=== PATIENT | female | born 1995 | race Caucasian/White ===

== ENCOUNTER 2023-07-20 23:00 | Inpatient (IN) | payer OTHER ==
[~2023-07-20] VITALS: Ht 144.8 cm; Wt 60.5 kg
[2023-07-20 23:45] VITALS: BP 106/65; PULSE 75; TEMP 98.2
[2023-07-20] MEDS ORDERED: LR 1,000 ML IV PRN (23:45)
[2023-07-21] VITALS (22 sets, daily range): BP systolic 94–117; BP diastolic 54–71; PULSE 62–90; TEMP 97.7–98.6
--- NOTE | 2023-07-21 01:05 | NUR ---
DR LOUIS NOTIFIED PT IS HERE, SVE X 2 UNCHANGED, FHT CATEGORY 1, CTX'S REG 2-5 MIN. PT STATES THEY ARE GETTING STRONGER SINCE SHE GOT HERE, GBS IS NEG, NO HEALTH HX, . 39.2 WKS. NKDA. HAVE PT AMB 30-45 MINS AND RECHECK HER CERVIX.
--- NOTE | 2023-07-21 01:20 | NUR ---
PT UP TO AMB IN THE [place] FOR 30-45 MINS THEN RECHECK CERVIX. IF CERVICAL CHANGE WAS MADE CALL DR LOUIS BACK.
--- NOTE | 2023-07-21 02:00 | NUR ---
PT BACK FROM [facility] IN [place]. SHE WENT TO THE BR TO VOID, BACK TO BED. SVE /-2. MORE BLOODY SHOW NOTED. PT BREATHING AND MOANING THOUGH CTX'S STATES THEY ARE MORE PAINFUL AND WANTS AN EPIDURAL. DR LOUIS NOTIFIED. ORDERS NOTED TO ADMIT TO L&D, MAY HAVE HER EPIDURAL NOW.
--- NOTE | 2023-07-21 02:10 | NUR ---
IV STARTED IN LEFT WRIST WITH 18 G. BLOOD DRAWN AND SENT TO LAB. IV FLUID BOLUS STARTED FOR EPIDURAL PLACEMENT.
[2023-07-21] MEDS ORDERED: LR & Oxytocin 500 ML IV SCH (02:15)
[2023-07-21] MEDS ORDERED: LR 1,000 ML IV SCH (02:15)
[2023-07-21 02:49] LABS: BASO % 0.2 % (0.0-2.0); EOS # 0.1 K/mm3 (0.0-0.7); EOS % 1.5 % (0.0-4.0); GRAN # 6.2 K/mm3 (1.4-6.5); HEMOGLOBIN 12.2 g/dl (12.5-16.0); LYMPH # 1.6 K/mm3 (1.2-3.4); MEAN CELL VOLUME 94 fl (80.0-100.0); MEAN CORPUSCULAR HEMOGLOBIN 33 pg (27-31); MEAN CORPUSCULAR HGB CONC 35 g/dl (33.0-37.0); MEAN PLATELET VOLUME 10.4 fl (7.4-10.4); MONO # 0.5 K/mm3 (0.1-0.6); MONO % 5.9 % (1.7-9.3); PLATELET COUNT 290 K/mm3 (130-400); RED BLOOD COUNT 3.74 M/mm3 (4.10-5.30); REDCELL DISTRIBUTION WIDTH-CV 13.6 % (11.5-14.5)
[2023-07-21 02:51] LABS: HEMATOCRIT 35.1 % (37.0-47.0)
[2023-07-21] MEDS ORDERED: ROPivacaine PF 0.2% 200 ML IV ONE (02:56)
--- NOTE | 2023-07-21 02:56 | NUR ---
JARRED JUNG FIRE HYDRANT MECHANIC HERE. PT TO A SITTING POSITION. 0310. FIRST EPIDURAL WAS IN , JARRED WAS GETTING BLOOD BACK IN THE CATHETER. THE CATH WAS REMOVED AND REPLACED. PT TOLERATED PROCEDURE VERY WELL. THE VOYCE INTERPRTER HAS BEEN USED THROUGH THE PROCESS FROM THE BEGINNING. 0317 TEST DOSE WAS GIVEN. 0323. EPIDURAL TAPED IN PLACE. PT TO A SUPINE POSITIN, EPIDURAL PUMP WAS STARTED BY JARRED.
--- NOTE | 2023-07-21 03:35 | NUR ---
PT'S LEGS ARE NUMB NOW. SHE IS NOT FEELING THE CTX'S. ESTRELLA CATH PLACED, CLEAR YELLOW URINE RETURNED. PT TOLERATED PROCEDURE WELL.
[2023-07-21] MEDS ORDERED: Naloxone 0.4 MG/ML VIAL IV PRN ×2 (04:30→09:15)
[2023-07-21] MEDS ORDERED: Ondansetron 4 MG/2 ML VIAL IV PRN (04:30)
[2023-07-21] MEDS ORDERED: diphenhydrAMINE 25 MG CAP PO PRN (04:30)
[2023-07-21] MEDS ORDERED: ePHEDrine 50 MG/10 ML VIAL IV PRN (04:30)
[2023-07-21] MEDS ORDERED: diphenhydrAMINE 50 MG/ML 1 ML VIAL IV PRN (04:30)
--- NOTE | 2023-07-21 08:00 | NUR ---
PAPER JAMMED IN MONITOR. NO PAPER STRIP PRINTED FROM 0615 UNTIL 0720. STRIP PRESENT ON OB TRACEVUE.
--- NOTE | 2023-07-21 08:47 | NUR ---
0825PT CALLS OUT THAT SHE IS FEELING A LOT OF PRESSURE. THIS RN AT BEDSIDE TO ASSESS. 0830SVE AT THIS TIME PER THIS RN. 0832SROM AT THIS TIME DURING RN SVE. SVE OF /+2. DR LOUIS, NURSERY NURSE, AND CHARGE NURSE ALL NOTIFIED. 0835DR HERIBERTO AT BEDSIDE TO COMFIRM SVE. SVE OF /+2. PT AND ROOM SET UP FOR DELIVERY. 0838FOLEY REMOVED AT THIS TIME. NURSERY NURSE AT BEDSIDE. 0842THIS RN AND DR LOUIS START PUSHING WITH PT AT THIS TIME. GOOD MATERNAL EFFORT NOTED. 0847SHOULDER DYSTOCHIA NOTED AT THIS TIME. PT HEAD OF BED LAID BACK. THIS RN AND APRIL RN PERFORM MAULIK MANUEVER, AND YESENIA RN PERFORMS SUPRAPUBIC PRESSURE. OF VIABLE MALE INFANT PER DR LOUIS. INFANT PLACED ON MATERNAL ABDOMEN. CARE ASSUMED BY NURSERY. SHOULDER DYSTOCIA NOTED TO LAST 15 SECONDS. 0851SVD OF PLACENTA PER DR LOUIS. PERINEUM IS INTACT PER DR LOUIS. PITOCIN BOLUS STARTED AT THIS TIME. FUNDUS FIRM AT U. LOCHIA WNL. 0855BED AND ROOM PUT BACK TOGETHER. PT COMFORTABLE IN BED. PERICARE PERFORMED. ICE PACK PLACED ON PT PERINEUM. FUNDUS FIRM AT U. LOCHIA WNL.
[2023-07-21] MEDS ORDERED: Measles/Mumps/Rubella Virus Vaccine Live w Diluent 0.5 ML VIAL SQ SCH (09:15)
[2023-07-21] MEDS ORDERED: Acetaminophen 500 MG TAB PO SCH (09:15)
[2023-07-21] MEDS ORDERED: Ibuprofen 800 MG TAB PO SCH (09:15)
[2023-07-21] MEDS ORDERED: Magnes Hydrox (MOM) 80 MG/ML 30 ML CUP PO PRN (09:15)
[2023-07-21] MEDS ORDERED: Witch Hazel 50% Pads Bulk TUB TP PRN (09:15)
[2023-07-21] MEDS ORDERED: Phenylephrine/Mineral Oil/Petrolatum 57 GM TUBE RC PRN (09:15)
[2023-07-21] MEDS ORDERED: Mag/Al Hydrox/Simeth Susp 30 ML CUP PO PRN (09:15)
[2023-07-21] MEDS ORDERED: Loratadine 10 MG TAB PO PRN (09:15)
[2023-07-21] MEDS ORDERED: Sennosides/Docusate 8.6-50 MG TAB PO SCH (17:00)
[2023-07-21] MEDS ORDERED: traZODone 50 MG TAB PO PRN (21:00)
[2023-07-22 03:30] VITALS: BP 107/60; PULSE 76; TEMP 98
[2023-07-22 08:15] VITALS: BP 103/64; PULSE 62; TEMP 97.5
--- NOTE | 2023-07-23 08:21 | NUR ---
Late Entry from 07/21/23 at 11:30am- handy worker received a consult for language barrier and needing to assess for resources. SW called RN and she reports no concerns with pt. SW notes the infant's name is Ida. SW was informed pt has declined the [employer] translater and opted to have her step-mother translate. SW met with pt, partner, and her step-mother in the room to discuss. Pt was sleepy and step-mother woke her and SW asked if she wanted to use the assembler camper or her step-mom. Pt declined the [employer] and used her mother. SW inquired about pt living in [place] and she confirmed this with her partner and other child, one year-old Jose Carlos. She reports the FOB is working and will return to work. They have a car for transportation to and from appointments. Pt utilizies WIC/Food stamps and is aware how to add the infant. She is not connected with any other resources. Pt reports no CARLI/Mental Health concerns or PPD with her previous child. She reports her step-mother, father, and siblings as good supports for her. She has a carseat in the car, crib and a bassinet, and enough clothes. She reports needing a few more diapers, step-mother reports she intends to get her more and pt and are "spoiled" otherwise. Mother intends to breast and formula feed. She reports they have used the formula from the hospital and SW advised she can obtain some from [facility] as well. Pt reports her children will be seen at the hospital in [place], but could not recall the Doctor's name. PEARL provided [place] [facility] Resource Guide; and highlighted [employer] for supplemental diaper/wipes need. SW provided [place] [facility] information, for any further questions and [facility] resource list. Pt had no further questions. PEARL informed RN of the above. No following concerns.
== END 2023-07-22 12:35 | disposition home or self-care (01) | DRG 807 ==
LOC: LDRO 23:00 → LDR 07-21 02:00 → LDRO 07-21 02:09 → LDR 07-21 02:09 → OB 07-21 11:15
PROVIDERS: Student in an Organized Health Care Education/Training Program; ADMIT Obstetrics & Gynecology
PROC: 10E0XZZ Delivery of Products of Conception, External Approach (ICD-10-PCS; principal; 2023-07-21)
DX: O36.5930 Maternal care for other known or suspected poor fetal growth, third trimester, not applicable or unspecified (principal); Z37.0 Single live birth; Z3A.39 39 weeks gestation of pregnancy; O99.02 Anemia complicating childbirth; D64.9 Anemia, unspecified; O66.0 Obstructed labor due to shoulder dystocia
CPT/HCPCS: J2590; J2795; J7120